=== PATIENT | male | born 1985 | race Caucasian/White ===

== ENCOUNTER 2023-11-29 22:24 | Emergency (ER) | payer SELFPAY ==
[2023-11-29] MEDS ORDERED: Amoxicillin/Clavulanate K 875-125 MG Tab PO ONE (22:25)
[2023-11-29] MEDS ORDERED: Lidocaine 2% with EPINEPHrine 1:100,000 20 ML MDV INFILT ONE (22:25)
[2023-11-29] MEDS ORDERED: Diphtheria,Pertussis(Acell),Tetanus Vaccine 0.5 ML Syringe IM ONE (22:53)
== END 2023-11-29 23:20 | disposition home or self-care (01) ==
LOC: FB.ED 22:24
DX: S01.25XA Open bite of nose, initial encounter (principal); Z88.5 Allergy status to narcotic agent; Z23 Encounter for immunization; W54.0XXA Bitten by dog, initial encounter
CPT/HCPCS: 12013; 90471; 90715; 99283; 99283-25; A9270-GY